=== PATIENT | female | born 1980 | race Caucasian/White ===

== ENCOUNTER 2023-02-08 18:39 | Emergency (ER) | payer SELFPAY ==
[~2023-02-08] VITALS: Ht 160 cm; Wt 61.0 kg
[2023-02-08] MEDS ORDERED: IBUP-2028 MT (19:58)
[2023-02-08 20:00] VITALS: BP 120/77
[2023-02-08] MEDS ORDERED: KETOROLAC 60MG/2ML VIAL IM ONE (20:00)
== END 2023-02-08 20:57 | disposition home or self-care (01) ==
LOC: ER 18:59
DX: M25.512 Pain in left shoulder (principal); M25.562 Pain in left knee; M54.2 Cervicalgia; V49.49XA Driver injured in collision with other motor vehicles in traffic accident, initial encounter; Y93.89 Activity, other specified; Y92.89 Other specified places as the place of occurrence of the external cause; Y99.8 Other external cause status; Z88.2 Allergy status to sulfonamides
CPT/HCPCS: 73030; 73560; 96372; 99284; J1885; Z7610